=== PATIENT | female | born 1960 | race Caucasian/White ===

== ENCOUNTER 2016-08-08 15:37 | Emergency (ER) | payer MEDICARE, OTHER ==
[2016-08-08 17:22] LABS: RED BLOOD COUNT 4.12 M/UL (4.00-5.10); WHITE BLOOD COUNT 7.8 K/UL (4.5-11.0)
[2016-08-08 17:54] LABS: BUN/CREATININE RATIO 7 (0-10)
== END 2016-08-08 20:40 | disposition home or self-care (01) ==
LOC: ER1 15:37
PROVIDERS: Emergency Medicine
DX: E10.649 Type 1 diabetes mellitus with hypoglycemia without coma (principal); E87.6 Hypokalemia; F17.200 Nicotine dependence, unspecified, uncomplicated; Z90.49 Acquired absence of other specified parts of digestive tract
CPT/HCPCS: 36415; 71010; 80053; 81001; 82550; 82553; 82962; 83874; 84484; 85025; 87086; 93005; 99285

== ENCOUNTER 2020-05-29 15:50 | Inpatient (IN) | payer MEDICARE, OTHER ==
[~2020-05-29] VITALS: Ht 165.1 cm; Wt 59.0 kg
[~2020-05-29 15:50] MED LIST: AZITHROMYCIN250 MG PO; BASAGLAR K100 UNIT/1 SQ; BUSPAR 10MG10 MG PO; CREON DR 24,001 EACH PO; CRESTOR20 MG PO; DECADRON6 MG PO; ELAVIL 25 MG TA25 MG PO; FERROUS GLUCON324 M1 PO; FORTEO 250250 MCG/ML INJ; IMITREX25 MG PO; KLONOPIN TAB 00.5 MG PO; LASIX20 MG PO; OMEPRAZOLE20 M1 PO; OMNICEF 300 MG300 MG PO; ONDANSETRON ODT4 MG SL; PERCOCET 5/325 T1 EA PO; ZANAFLEX4 MG PO; ZOLOFT100 MG PO
[2020-05-29 16:16] LABS: RED BLOOD COUNT 2.91 M/UL (4.00-5.10); WHITE BLOOD COUNT 7.4 K/UL (4.5-11.0)
[2020-05-29 16:53] LABS: BUN/CREATININE RATIO 20 (0-10)
[2020-05-30 05:21] LABS: WHITE BLOOD COUNT 7.1 K/UL (4.5-11.0)
[2020-05-30 05:22] LABS: HEMOGLOBIN 11.3 gm/dl (12.3-15.3); RED BLOOD COUNT 3.56 M/UL (4.00-5.10)
[2020-05-30] MEDS ORDERED: FERROUS SULFAT325 MG PO (18:07)
[2020-05-30] MEDS ORDERED: FORTEO 250250 MCG/ML SC ×2 (18:09→18:29)
[2020-05-30] MEDS ORDERED: NOVOLOG 10100 UNITS2 SC (18:11)
[2020-05-30] MEDS ORDERED: MAGIC BARRIER CREAM (18:14)
[2020-05-30] MEDS ORDERED: ZOFRAN ODT 4 MG4 MG PO (18:17)
[2020-05-30] MEDS ORDERED: CREON DR 12,001 EACH PO (18:19)
[2020-05-30] MEDS ORDERED: IMITREX50 MG PO (18:24)
[2020-05-31 05:33] LABS: HEMOGLOBIN 8.2 gm/dl (12.3-15.3); RED BLOOD COUNT 2.64 M/UL (4.00-5.10); WHITE BLOOD COUNT 10.8 K/UL (4.5-11.0)
[2020-06-01 02:11] LABS: HBSAG SCREEN Negative (Negative); HEP A AB, IGM Negative (Negative); HEP B CORE AB, IGM Negative (Negative); HEP C VIRUS AB <0.1 (0.0-0.9)
[2020-06-01 07:18] LABS: HEMOGLOBIN 7.7 gm/dl (12.3-15.3); RED BLOOD COUNT 2.53 M/UL (4.00-5.10); WHITE BLOOD COUNT 9.1 K/UL (4.5-11.0)
[2020-06-02 05:53] LABS: HEMOGLOBIN 7.9 gm/dl (12.3-15.3); RED BLOOD COUNT 2.51 M/UL (4.00-5.10); WHITE BLOOD COUNT 10.6 K/UL (4.5-11.0)
[2020-06-03 05:34] LABS: HEMOGLOBIN 7.5 gm/dl (12.3-15.3); RED BLOOD COUNT 2.32 M/UL (4.00-5.10)
[2020-06-04 07:50] LABS: RED BLOOD COUNT 2.18 M/UL (4.00-5.10); WHITE BLOOD COUNT 9.3 K/UL (4.5-11.0)
[2020-06-04 07:58] LABS: HEMOGLOBIN 6.5 gm/dl (12.3-15.3)
[2020-06-05 05:40] LABS: HEMOGLOBIN 9.3 gm/dl (12.3-15.3)
[2020-06-05 05:43] LABS: RED BLOOD COUNT 2.95 M/UL (4.00-5.10); WHITE BLOOD COUNT 13.4 K/UL (4.5-11.0)
[2020-06-06 05:42] LABS: HEMOGLOBIN 8.4 gm/dl (12.3-15.3); RED BLOOD COUNT 2.67 M/UL (4.00-5.10); WHITE BLOOD COUNT 12.7 K/UL (4.5-11.0)
[2020-06-06 06:11] LABS: BUN/CREATININE RATIO 20 (0-10)
[2020-06-07 05:30] LABS: HEMOGLOBIN 7.9 gm/dl (12.3-15.3); RED BLOOD COUNT 2.46 M/UL (4.00-5.10); WHITE BLOOD COUNT 15.6 K/UL (4.5-11.0)
[2020-06-07 22:09] LABS: HEMOGLOBIN 6.7 gm/dl (12.3-15.3)
[2020-06-08 09:45] LABS: HEMOGLOBIN 12.5 gm/dl (12.3-15.3); RED BLOOD COUNT 4.07 M/UL (4.00-5.10); WHITE BLOOD COUNT 21.3 K/UL (4.5-11.0)
[2020-06-09 06:44] LABS: HEMOGLOBIN 11.3 gm/dl (12.3-15.3); WHITE BLOOD COUNT 17.5 K/UL (4.5-11.0)
[2020-06-09 06:48] LABS: RED BLOOD COUNT 3.58 M/UL (4.00-5.10)
[2020-06-09 11:15] LABS: ADENOVIRUS F 40/41 Not Detected (Not Detected); ASTROVIRUS Not Detected (Not Detected); C DIFFICILE TOXIN A/B Not Detected (Not Detected); CAMPYLOBACTER Not Detected (Not Detected); CRYPTOSPORIDIUM Not Detected (Not Detected); CYCLOSPORA CAYETANENSIS Not Detected (Not Detected); ENTAMOEBA HISTOLYTICA Not Detected (Not Detected); ENTEROAGGREGATIVE E COLI Not Detected (Not Detected); ENTEROPATHOGENIC E COLI Not Detected (Not Detected); ENTEROTOXIGENIC E COLI Not Detected (Not Detected); GIARDIA LAMBLIA Not Detected (Not Detected); NOROVIRUS GI/GII Not Detected (Not Detected); PLESIOMONAS SHIGELLOIDES Not Detected (Not Detected); ROTAVIRUS A Not Detected (Not Detected); SALMONELLA Not Detected (Not Detected); SAPOVIRUS Not Detected (Not Detected); SHIGA-TOXIN-PRODUCING E COLI Not Detected (Not Detected); SHIGELLA/ENTEROINVASIVE E COLI Not Detected (Not Detected); VIBRIO Not Detected (Not Detected); VIBRIO CHOLERAE Not Detected (Not Detected); YERSINIA ENTEROCOLITICA Not Detected (Not Detected)
[2020-06-09 17:20] LABS: HEMOGLOBIN 13.1 gm/dl (12.3-15.3)
[2020-06-10 07:56] LABS: RED BLOOD COUNT 3.28 M/UL (4.00-5.10); WHITE BLOOD COUNT 17.3 K/UL (4.5-11.0)
[2020-06-10 08:06] LABS: HEMOGLOBIN 10.3 gm/dl (12.3-15.3)
[2020-06-11 07:15] LABS: HEMOGLOBIN 9.7 gm/dl (12.3-15.3); RED BLOOD COUNT 3.1 M/UL (4.00-5.10); WHITE BLOOD COUNT 16.8 K/UL (4.5-11.0)
[2020-06-12 05:32] LABS: HEMOGLOBIN 9.5 gm/dl (12.3-15.3); RED BLOOD COUNT 3.07 M/UL (4.00-5.10); WHITE BLOOD COUNT 15.7 K/UL (4.5-11.0)
--- NOTE | 2020-06-12 16:06 | NUR ---
Spoke with eldest daughter at 1356 and 1409 on 06/12/2020. Daughter/family spoke with on the evening of 06/11/2020 about comfort care. The daughter/family was ready to transition to comfort care. MD was informed about daughter/family decision and comfort care orders were put into place.
--- NOTE | 2020-06-12 16:58 | NUR ---
PATIENT TIME OF 1612 06/12/2020. BETY CALLED AT 1625. BETY HAD TO CALL BACK AT 1647. PATIENT WAS RULED OUT FOR ORGAN DONTAITON PER BETY. , IRMA RAZA WAS THE COORDINATOR. WAS NOTIFIED AT 1614. FAMILY AT BEDSIDE AND CHOSE [facility] WHEN READY.
--- NOTE | 2020-06-12 18:46 | NUR ---
CALLED [facility] AT 1846 06/12/20. GAVE HOME DAUGHTERS CONTACT INFORMATION. HOME IS ON THE WAY
--- NOTE | 2020-06-12 21:16 | NUR ---
1914 PT DISCHARGED TO [facility] PER FAMILY REQUEST.
== END 2020-06-12 16:12 | disposition expired | DRG 870 ==
LOC: ER1 15:50 → CCU 17:37 → CDU 17:37 → PROG CARE 05-30 14:30 → CDU 05-30 14:47 → CCU 05-30 17:27
PROVIDERS: Emergency Medicine; Internal Medicine; Internal Medicine Pulmonary Disease; Nurse Practitioner; Physical Medicine & Rehabilitation Pain Medicine; ADMIT Internal Medicine
PROC: 0D9670Z Drainage of Stomach with Drainage Device, Via Natural or Artificial Opening (ICD-10-PCS; 2020-05-29)
PROC: 0BH17EZ Insertion of Endotracheal Airway into Trachea, Via Natural or Artificial Opening (ICD-10-PCS; principal; 2020-05-30)
PROC: 5A1955Z Respiratory Ventilation, Greater than 96 Consecutive Hours (ICD-10-PCS; 2020-05-30)
PROC: 0DH67UZ Insertion of Feeding Device into Stomach, Via Natural or Artificial Opening (ICD-10-PCS; 2020-05-31)
PROC: 3E0G76Z Introduction of Nutritional Substance into Upper GI, Via Natural or Artificial Opening (ICD-10-PCS; 2020-05-31)
PROC: 02HV33Z Insertion of Infusion Device into Superior Vena Cava, Percutaneous Approach (ICD-10-PCS; 2020-05-31)
PROC: B548ZZA Ultrasonography of Superior Vena Cava, Guidance (ICD-10-PCS; 2020-05-31)
PROC: 04HY32Z Insertion of Monitoring Device into Lower Artery, Percutaneous Approach (ICD-10-PCS; 2020-05-31)
PROC: 0BC78ZZ Extirpation of Matter from Left Main Bronchus, Via Natural or Artificial Opening Endoscopic (ICD-10-PCS; 2020-06-07)
PROC: 30233N1 Transfusion of Nonautologous Red Blood Cells into Peripheral Vein, Percutaneous Approach (ICD-10-PCS; 2020-06-07)
PROC: 30233N1 Transfusion of Nonautologous Red Blood Cells into Peripheral Vein, Percutaneous Approach (ICD-10-PCS; 2020-06-08)
DX: A41.51 Sepsis due to Escherichia coli [E. coli] (principal); R65.21 Severe sepsis with septic shock; K72.00 Acute and subacute hepatic failure without coma; I21.A1 Myocardial infarction type 2; J80 Acute respiratory distress syndrome; N17.0 Acute kidney failure with tubular necrosis; J69.0 Pneumonitis due to inhalation of food and vomit; J15.6 Pneumonia due to other Gram-negative bacteria; K72.01 Acute and subacute hepatic failure with coma; G92 Toxic encephalopathy; E72.20 Disorder of urea cycle metabolism, unspecified; E87.0 Hyperosmolality and hypernatremia; I47.2 Ventricular tachycardia; K86.1 Other chronic pancreatitis; N39.0 Urinary tract infection, site not specified; K76.6 Portal hypertension; R18.8 Other ascites; I13.0 Hypertensive heart and chronic kidney disease with heart failure and stage 1 through stage 4 chronic kidney disease, or unspecified chronic kidney disease; I50.30 Unspecified diastolic (congestive) heart failure; E87.1 Hypo-osmolality and hyponatremia; J98.11 Atelectasis; E87.2 Acidosis; D68.8 Other specified coagulation defects; N18.30 Chronic kidney disease, stage 3 unspecified; Z20.822 Contact with and (suspected) exposure to COVID-19; Z51.5 Encounter for palliative care; E87.6 Hypokalemia; D69.6 Thrombocytopenia, unspecified; R26.9 Unspecified abnormalities of gait and mobility; E11.65 Type 2 diabetes mellitus with hyperglycemia; K76.9 Liver disease, unspecified; E11.22 Type 2 diabetes mellitus with diabetic chronic kidney disease; G40.909 Epilepsy, unspecified, not intractable, without status epilepticus; E83.42 Hypomagnesemia; R40.2410 Glasgow coma scale score 13-15, unspecified time; E86.0 Dehydration; G93.89 Other specified disorders of brain; E83.39 Other disorders of phosphorus metabolism; I05.8 Other rheumatic mitral valve diseases; R53.83 Other fatigue; L89.152 Pressure ulcer of sacral region, stage 2; F10.10 Alcohol abuse, uncomplicated; M21.372 Foot drop, left foot; F32.9 Major depressive disorder, single episode, unspecified; I08.1 Rheumatic disorders of both mitral and tricuspid valves; F41.9 Anxiety disorder, unspecified; M21.371 Foot drop, right foot; E78.5 Hyperlipidemia, unspecified; K74.60 Unspecified cirrhosis of liver; G43.909 Migraine, unspecified, not intractable, without status migrainosus; F17.210 Nicotine dependence, cigarettes, uncomplicated; R74.01 Elevation of levels of liver transaminase levels; D50.9 Iron deficiency anemia, unspecified; Z82.49 Family history of ischemic heart disease and other diseases of the circulatory system; Z79.899 Other long term (current) drug therapy; Z86.73 Personal history of transient ischemic attack (TIA), and cerebral infarction without residual deficits; Z79.4 Long term (current) use of insulin
CPT/HCPCS: ECHO; 0240U; 31500; 36415; 36430; 36600; 43752; 51702; 70450; 71045; 74018; 76700; 80048; 80053; 80074; 80076; 80202; 80307; 81001; 82009; 82140; 82150; 82248; 82533; 82550; 82553; 82565; 82803; 82962; 83540; 83550; 83605; 83615; 83690; 83735; 83874; 83880; 84100; 84132; 84484; 85014; 85018; 85025; 85027; 85045; 85384; 85610; 85730; 86140; 86850; 86900; 86901; 86920; 87040; 87070; 87077; 87086; 87186; 87205; 87449; 87507; 92526; 92610; 93005; 93306; 94002; 94003; 94640; 94660; 94664; 94760; 95816; 95819; 96365; 99285; A6212; C9113; G0480; J0330; J0696; J1205; J1644; J1720; J1940; J1953; J2060; J2185; J2250; J2370; J2543; J3370; J3430; J3475; J3480; J7030; J7040; J7050; J7060; J7070; P9016; P9045; P9047; U0002